=== PATIENT | male | born 1985 | race Native Hawaiian/Other Pacific Islander ===

== ENCOUNTER 2022-11-09 17:45 | Emergency (ER) | payer OTHER ==
[~2022-11-09] VITALS: Ht 177.8 cm; Wt 68.0 kg
[2022-11-09 17:45] VITALS: BP 149/100; TEMP 97.8
== END 2022-11-09 19:05 ==
LOC: ED 17:45
DX: S00.03XA Contusion of scalp, initial encounter (principal); S16.1XXA Strain of muscle, fascia and tendon at neck level, initial encounter; W01.198A Fall on same level from slipping, tripping and stumbling with subsequent striking against other object, initial encounter; Y93.E5 Activity, floor mopping and cleaning; Y92.148 Other place in prison as the place of occurrence of the external cause
CPT/HCPCS: 90715; 96372; 99283